=== PATIENT | female | born 1940 | race Caucasian/White ===

== ENCOUNTER 2017-02-11 16:28 | Emergency (ER) | payer OTHER ==
[~2017-02-11] VITALS: Ht 162.6 cm; Wt 58.1 kg
[~2017-02-11 16:28] MED LIST: ACET-1256 PO; ASPEC81 PO; ATOR10TA88 PO; DICY10CA55 PO; MULT-931 PO
[2017-02-11] MEDS ORDERED: SODIUM CHLORIDE 0.9% 1000ML 1,000 ML IV STA (16:33)
[2017-02-11] MEDS ORDERED: MoRPHine SULFATE 2 MG/ML CARP IV STA (16:33)
[2017-02-11] MEDS ORDERED: ONDANSETRON INJ 2 MG/ML 2 ML VIAL IV STA (16:33)
[2017-02-11 16:34] VITALS: Ht 162.6 cm; Wt 58.1 kg
[2017-02-11 16:55] LABS: BASO % 0.6 %; BASO ABS # 0.05 K/uL (0-0.2); COMPLETE YES; EOS % 1.3 %; HEMATOCRIT 41.7 % (37-47); IG% 0.1 %; LYMPH % 33.5 %; LYMPH ABS # 2.95 K/uL (1.2-3.4); MEAN CELL VOLUME 90.8 fL (80-100); MEAN CORPUSCULAR HEMOGLOBIN 29.4 pg (25-34); MEAN CORPUSCULAR HGB CONC 32.4 g/dl (32-36); MEAN PLATELET VOLUME 10.8 fL (7.4-10.4); NEUT % 53.5 %; PLATELET COUNT 203 K/uL (130-400); RED BLOOD COUNT 4.59 M/uL (4.2-5.4)
[2017-02-11 17:04] LABS: PARTIAL THROMBOPLASTIN RATIO 0.9; PROTHROMBIN TIME (PATIENT) 11.2 SECONDS (9.0-12.0)
[2017-02-11] MEDS ORDERED: MoRPHine SULFATE 2 MG/ML CARP IV PRN (17:30)
[2017-02-11 17:37] LABS: ALKALINE PHOSPHATASE 66 U/L (45-117); ALT/SGPT 31 U/L (12-78); AST/SGOT 35 U/L (15-37); BLOOD UREA NITROGEN 14 mg/dl (7-18); BUN/CREATININE RATIO 19.5 (10-20); CALCIUM 8.6 mg/dl (8.5-10.1); CARBON DIOXIDE 28 mmol/L (21-32); CHLORIDE 103 mmol/L (98-107); CREATININE 0.74 mg/dl (0.60-1.20); GLUCOSE 102 mg/dl (70-99); POTASSIUM 3.9 mmol/L (3.5-5.1); SODIUM 137 mmol/L (136-145)
--- NOTE | 2017-02-11 17:42 | DIAGNOSTIC IMAGING REPORT ---
LEFT HIP UNILATERAL 1 VIEW CLINICAL HISTORY: LEFT HIP DEFORMITY pain COMPARISON: None. DISCUSSION: Dislocation of the patient's left hip total arthroplasty. Slight superior migration of the left femoral prosthetic in relation to the acetabular prosthetic. No evidence for fracture. There is no evidence for soft tissue swelling. IMPRESSION: Dislocation left hip arthroplasty The above report was generated using voice recognition software. It may contain grammatical, syntax or spelling errors. Electronically signed by: Modesto Estevez M.D. 02/11/2017 5:41 PM Dictated Date/Time: 02/11/2017 5:40 PM
--- NOTE | 2017-02-11 18:31 | EMERGENCY ROOM VISIT NOTE ---
History Report prepared by Dorian: Maia Muller Under the Supervision of: Dr. Teresa Plasencia M.D. First contact with patient: 16:33 Chief Complaint: FALL Stated Complaint: FALL. L HIP AND LEG PAIN History of Present Illness The patient is a 77 year old female who presents to the Emergency Room by EMS with complaints of persistent left hip pain after falling just prior to arrival. The patient states that a dog was coming at her just before she fell. She also notes that she was yelling for help before pedestrians came and called EMS. She states she has both hips replaced and denies ever dislocating her hips before. The patient denies hurting anything else from the fall and denies any abdominal pain or nausea. The patient denies hitting her head and loosing consciousness. She also notes that she is on any blood thinners. Source of History: patient Onset: just prior to arrival Position: other (hip) Timing: other (persistent) Associated Symptoms: No LOC, No nausea, No abdominal pain Note: Pt denies hitting head. Review of Systems See HPI for pertinent positives & negatives. A total of 10 systems reviewed and were otherwise negative. Past Medical & Surgical Surgical Problems: (1) Status post hip replacement Family History Patient reports no known family medical history. No pertinent family history stated. Social History Smoking Status: Never Smoker Drug Use: none Marital Status: Housing Status: lives alone Occupation Status: employed Current/Historical Medications No Active Prescriptions or Reported Meds Allergies Coded Allergies: Penicillins (Verified Allergy, Unknown, 08/04/09) Physical Exam Vital Signs Date Time Temp Pulse Resp B/P (MAP) Pulse Ox O2 Delivery O2 Flow Rate FiO2 02/11/17 21:08 78 16 135/78 98 02/11/17 20:17 74 18 146/81 98 Room Air 02/11/17 20:05 72 10 137/78 96 02/11/17 20:03 133/74 02/11/17 20:02 74 16 137/78 95 Room Air 02/11/17 20:01 131/ 02/11/17 19:55 81 11 126/70 100 02/11/17 19:52 125/79 02/11/17 19:50 146/83 02/11/17 19:50 79 4 125/79 98 Nasal Cannula 2.0 02/11/17 19:48 80 16 168/91 99 Nasal Cannula 2.0 02/11/17 19:45 36.8 80 16 168/91 99 Nasal Cannula 2.0 02/11/17 19:45 79 14 98 02/11/17 18:32 76 16 175/80 99 Room Air 02/11/17 18:32 69 02/11/17 16:34 36.6 74 18 139/89 99 Room Air Physical Exam Vital signs reviewed. General: Well-appearing female. HEENT: No scleral icterus, PERRLA, neck supple. Atraumatic. Cardiovascular: Regular rate and rhythm, no extra sounds. Pulmonary: Clear to auscultation bilaterally, normal work of breathing. Abdomen: Soft, nontender, nondistended, positive bowel sounds. Musculoskeletal: Atraumatic, no significant deformity. Cervical, thoracic and lumbar spine are palpated, nontender, no step-off or deformity appreciated. Deformity of left hip with inversion of leg Neurologic: Patient awake alert and oriented x 3, full strength in all 4 extremities. NVI distally to left foot. Skin: Warm, dry, no rash. No significant abrasions/laceration. Medical Decision & Procedures ER Provider Diagnostic Interpretation: LEFT HIP UNILATERAL 1 VIEW DISCUSSION: Dislocation of the patient's left hip total arthroplasty. Slight superior migration of the left femoral prosthetic in relation to the acetabular prosthetic. No evidence for fracture. There is no evidence for soft tissue swelling. IMPRESSION: Dislocation left hip arthroplasty The above report was generated using voice recognition software. It may contain grammatical, syntax or spelling errors. Electronically signed by: Modesto Estevez M.D. LEFT HIP UNILATERAL 2 VIEWS CLINICAL HISTORY: L hip dislocation COMPARISON: Earlier study same date DISCUSSION: Anatomic alignment status post closed reduction. Good contact between prosthetic and underlying bone. There is no evidence for soft tissue swelling. IMPRESSION: Anatomic alignment status post closed reduction The above report was generated using voice recognition software. It may contain grammatical, syntax or spelling errors. Electronically signed by: Modesto Estevez M.D. 02/11/2017 8:13 PM Laboratory Results 02/11/17 16:35 Red Blood Count 4.59, Mean Corpuscular Volume 90.8, Mean Corpuscular Hemoglobin 29.4, Mean Corpuscular Hemoglobin Concent 32.4, Mean Platelet Volume 10.8, Neutrophils (%) (Auto) 53.5, Lymphocytes (%) (Auto) 33.5, Monocytes (%) (Auto) 11.0, Eosinophils (%) (Auto) 1.3, Basophils (%) (Auto) 0.6, Neutrophils # (Auto ) 4.71, Lymphocytes # (Auto) 2.95, Monocytes # (Auto) 0.97, Eosinophils # (Auto ) 0.11, Basophils # (Auto) 0.05 02/11/17 16:35 Test 02/11/17 16:35 White Blood Count 8.80 K/uL (4.8-10.8) Red Blood Count 4.59 M/uL (4.2-5.4) Hemoglobin 13.5 g/dL (12.0-16.0) Hematocrit 41.7 % (37-47) Mean Corpuscular Volume 90.8 fL (80-100) Mean Corpuscular Hemoglobin 29.4 pg (25-34) Mean Corpuscular Hemoglobin Concent 32.4 g/dl (32-36) Platelet Count 203 K/uL (130-400) Mean Platelet Volume 10.8 fL (7.4-10.4) Neutrophils (%) (Auto) 53.5 % Lymphocytes (%) (Auto) 33.5 % Monocytes (%) (Auto) 11.0 % Eosinophils (%) (Auto) 1.3 % Basophils (%) (Auto) 0.6 % Neutrophils # (Auto) 4.71 K/uL (1.4-6.5) Lymphocytes # (Auto) 2.95 K/uL (1.2-3.4) Monocytes # (Auto) 0.97 K/uL (0.11-0.59) Eosinophils # (Auto) 0.11 K/uL (0-0.5) Basophils # (Auto) 0.05 K/uL (0-0.2) RDW Standard Deviation 45.4 fL (36.4-46.3) RDW Coefficient of Variation 13.7 % (11.5-14.5) Immature Granulocyte % (Auto) 0.1 % Immature Granulocyte # (Auto) 0.01 K/uL (0.00-0.02) Prothrombin Time 11.2 SECONDS (9.0-12.0) Prothromb Time International Ratio 1.0 (0.9-1.1) Activated Partial Thromboplast Time 24.0 SECONDS (21.0-31.0) Partial Thromboplastin Ratio 0.9 Anion Gap 6.0 mmol/L (3-11) Est Creatinine Clear Calc Drug Dose 56.8 ml/min Estimated GFR () 91.9 Estimated GFR (Non- 79.3 BUN/Creatinine Ratio 19.5 (10-20) Calcium Level 8.6 mg/dl (8.5-10.1) Total Bilirubin 0.3 mg/dl (0.2-1) Direct Bilirubin mg/dl (0-0.2) Aspartate Amino Transf (AST/SGOT) 35 U/L (15-37) Alanine Aminotransferase (ALT/SGPT) 31 U/L (12-78) Alkaline Phosphatase 66 U/L (45-117) Total Protein 7.0 gm/dl (6.4-8.2) Albumin 3.7 gm/dl (3.4-5.0) Chemistry Specimen Hemolysis Laboratory results per my review. Medications Administered Medications (Trade) Dose Ordered Sig/Juan Route Start Time Stop Time Status Last Admin Dose Admin Sodium Chloride 1,000 ml @ 125 mls/hr Q8H STAT IV 02/11/17 16:33 02/11/17 22:17 DC 02/11/17 16:46 125 MLS/HR Morphine Sulfate (MoRPHine SULFATE INJ) 2 mg NOW STAT IV 02/11/17 16:33 02/11/17 16:37 DC 02/11/17 16:45 2 MG Ondansetron HCl (Zofran Inj) 4 mg NOW STAT IV 02/11/17 16:33 02/11/17 16:37 DC 02/11/17 16:45 4 MG Morphine Sulfate (MoRPHine SULFATE INJ) 2 mg Q1HWA PRN IV 02/11/17 17:30 02/11/17 22:17 DC 02/11/17 17:31 2 MG Procedure Procedural Sedation Indication Hip reduction. Total time: 16 minutes. Written consent was obtained after the risks and benefits were explained to the the patient, including, but not limited to aspiration, allergic reaction, breathing difficulties, cardiac complications, vomiting, pain, event recall, bleeding, and/or infection. Pre-sedation examination and paperwork completed. The patient was on 100% oxygen via NRB prior to the procedure. Continuous end tidal CO2 monitoring, pulse oximetry, and cardiac monitoring were utilized. Suction, airway equipment, medications, respiratory equipment, and appropriate personnel were prepared prior to the initiation of the procedure. A time out was taken. Sedation was achieved utilizing a total of 75 mg of propofol. After I observed the patient had reached the appropriate level of sedation the main procedure was performed without complication. Sedation was discontinued and the monitoring continued. The patient recovered quickly from the effects of the medication without complication or adverse event. ECG Indication: other (s/p fall and hip pain) Rate (beats per minute): 72 Rhythm: normal sinus Findings: other (atrial enlargement) ED Course 163: Past medical records reviewed. The patient was evaluated in room B9. A complete history and physical examination was performed. 1632: Zofran Inj 4 mg IV, Morphine Sulfate Inj 2 mg Iv, Sodium Chloride 1000 ml @ 999 mls/hr IV 1729: Morphine Sulfate 2 mg IV 1909: I reviewed the patient's case with Dr. Mckeon from [facility]. He will be coming to reduce the patient's hip. 1917: Propofol 100 mg IV. 1933: I updated the patient about Dr. Mckeon coming to reduce her hip. The patient has been NPO for 6 hours with light snack 3 hours ago 1948: I put patient under conscious sedation 1950: Dr. Mckeon reduced the patient's left hip. 2039: Upon reevaluation, the patient appeared to have improvement of her symptoms. I discussed findings with the patient. She verbalized agreement of the treatment plan. The patient was discharged home. Medical Decision Differential diagnosis: Etiologies such as fracture, dislocation, neurovascular compromise, compartment syndrome, soft tissue injury, as well as others were entertained. This pt was evaluated and appeared to be in significant discomfort. IV access was obtained and lab work was drawn. Pt was placed on the library monitor. IV morphine was administered for pain. XR of the L hip was performed and confirms dislocation of IMANI. Pt was NPO after light snack for 3 hours at time of evaluation. She was kept NPO for 3 more hours during evaluation. Dr Mckeon was contacted and evaluated the pt in the ED for reduction. Pt was consented and the procedure was performed without difficulty. Pt recovered easily. She was d/c with hip precautions and will f/u with Dr Jones, her orthopaedic surgeon, later this week for reevaluation. She was advised to return to the ED for worsening of symptoms or any medical concerns. Medication Reconcilliation Current Medication List: was personally reviewed by me Blood Pressure Screening Patient's blood pressure: Normal blood pressure Blood pressure disposition: Did not require urgent referral Impression Primary Impression: Hip dislocation, left Additional Impression: History of total hip arthroplasty Scribe Attestation The scribe's documentation has been prepared under my direction and personally reviewed by me in its entirety. I confirm that the note above accurately reflects all work, treatment, procedures, and medical decision making performed by me. Departure Information Dispostion Home / Self-Care Prescriptions No Active Prescriptions or Reported Meds Referrals Dillon Skaggs M.D. (PCP) Forms HOME CARE DOCUMENTATION FORM, IMPORTANT VISIT INFORMATION Patient Instructions My [facility] Additional Instructions Diagnosis: Left hip dislocation Please maintain strict hip precautions as discussed with Dr. Mckeon. See hip precaution handout. Follow-up with Dr. Jones this week for reevaluation. Tylenol 650 mg every 6 hours as needed for pain Return to the emergency department for worsening of symptoms or any medical concerns. Problem Qualifiers Primary Impression: Hip dislocation, left Encounter type: initial encounter Qualified Codes: S73.005A - Unspecified dislocation of left hip, initial encounter
[2017-02-11] MEDS ORDERED: PROPOFOL IV EMULSION 10 MG/ML 20 ML VIAL IV STA (19:18)
--- NOTE | 2017-02-11 19:42 | EMERGENCY ROOM VISIT NOTE ---
Pre-Mod Sedation Assessment General Date of Moderate Sedation: Feb 11, 2017. Vital Signs: Vital Signs Past 12 Hours Date Time Temp Pulse Resp B/P (MAP) Pulse Ox O2 Delivery O2 Flow Rate FiO2 02/11/17 18:32 76 16 175/80 99 Room Air 02/11/17 18:32 69 02/11/17 16:34 36.6 74 18 139/89 99 Room Air Review Cardiovascular: regular rate, rhythm Abdomen: normal bowel sounds, non tender, soft Lungs: chest non-tender, normal breath sounds Airway Class: I Pre-Sedation Airway Assessment Oral Cavity: WNL Able to Visualize Vocal Cords: Yes Short Thick Neck: No Hx of Sleep Apnea: No Smoking Status: Never Smoker Mallampati Classification: Class I (Sft palate,uvula,fauces,pillar) ASA Classification: Class I Procedure Planning Contraindications-for Mod Sed: None Yes Notes The planned sedation has been discussed with the patient and consent obtained. I have identified the patient, determined the appropriateness of sedation and have assessed the patient immediately prior to the procedure. All medicine(s) and interventions are by my order.
[2017-02-11 19:45] VITALS: BP 168/91; PULSE 80; TEMP 36.8; O2SAT 99
--- NOTE | 2017-02-11 19:47 | EMERGENCY ROOM VISIT NOTE ---
Post-Moderate Sedation Plan General Date of Moderate Sedation Feb 11, 2017. Vital Signs: Vital Signs Past 12 Hours Date Time Temp Pulse Resp B/P (MAP) Pulse Ox O2 Delivery O2 Flow Rate FiO2 02/11/17 18:32 76 16 175/80 99 Room Air 02/11/17 18:32 69 02/11/17 16:34 36.6 74 18 139/89 99 Room Air Review - Discharge Plan Post Moderate Sedation Plan: On clinical assessment, the patient appears to have tolerated the conscious sedation without complications. Patient is recovering as anticipated. Patient will continue to be monitored by nursing and may be discharged when conscious sedation discharge criteria are met.
[2017-02-11 19:48] VITALS: BP 168/91; PULSE 80; O2SAT 99
[2017-02-11 19:50] VITALS: BP 125/79; PULSE 79; O2SAT 98
[2017-02-11 20:02] VITALS: BP 137/78; PULSE 74; O2SAT 95
--- NOTE | 2017-02-11 20:14 | DIAGNOSTIC IMAGING REPORT ---
LEFT HIP UNILATERAL 2 VIEWS CLINICAL HISTORY: L hip dislocation COMPARISON: Earlier study same date DISCUSSION: Anatomic alignment status post closed reduction. Good contact between prosthetic and underlying bone. There is no evidence for soft tissue swelling. IMPRESSION: Anatomic alignment status post closed reduction. The above report was generated using voice recognition software. It may contain grammatical, syntax or spelling errors. Electronically signed by: Modesto Estevez M.D. 02/11/2017 8:13 PM Dictated Date/Time: 02/11/2017 8:12 PM
[2017-02-11 20:17] VITALS: BP 146/81; PULSE 74; O2SAT 98
[2017-02-11 21:08] VITALS: BP 135/78; PULSE 78; O2SAT 98
--- NOTE | 2017-02-12 00:31 | ORTHOPEDIC CONSULTATION ---
DATE OF CONSULTATION: 02/11/2017 HISTORY OF PRESENT ILLNESS: A 77-year-old female with history of a left total hip replacement by Dr. Jones in 2004. She never had any complications or problems with it. She is a very active person. She was walking her dog and there was an incident and she ended up twisting and her hip dislocated. PAST MEDICAL HISTORY: She has been healthy. She has had a bladder tack type surgery with hysterectomy and her hip replacement. Other than that, no health issues. MEDICATIONS: She is on no medication. REVIEW OF SYSTEMS: Noncontributory. PHYSICAL EXAMINATION: Demonstrates her left hip is flexed and internally rotated. Distal neurological exam is intact. Hip is clearly dislocated posteriorly. She has benign incision. There are no signs of infection. Radiographs demonstrate a posterior dislocation of the left hip, no obvious fracture. ASSESSMENT: Acute posttraumatic posterior hip dislocation, status post total hip arthroplasty in 2004. PLAN: Closed reduction. The Emergency Room personnel provided the sedation with Dr. Plasencia providing the sedation. Her left hip was reduced by standing above the patient, flexing her knee and hip to 90 degrees, then putting a longitudinal traction on the hip and then gradually externally rotating the hip until it reduced uneventfully. Then I checked her leg length which was appropriate, checked her stability and into flexion. Her hip was stable to 100 degrees of flexion and I did not stress it further, not wanting to re-dislocate the hip. With gentle rotation, hip was stable. Post-reduction x-rays demonstrate a relocated total hip with no fracture. Post-procedure plan is to discharge the patient home. Recommended elevated toilet seat to prevent dislocation. Strict hip precautions. Instructions were provided to the patient and the family. She will follow up with Dr. Jones in a week.
== END 2017-02-11 21:09 | disposition home or self-care (01) ==
LOC: EDBD 16:28 → C.EDB 16:29 → C.ED 21:09
DX: T84.021A Dislocation of internal left hip prosthesis, initial encounter (principal); W19.XXXA Unspecified fall, initial encounter; Y92.89 Other specified places as the place of occurrence of the external cause; Y93.K1 Activity, walking an animal

== ENCOUNTER → 2017-03-14 | Outpatient (CLI) | payer OTHER ==
--- NOTE | 2017-03-14 10:48 | DIAGNOSTIC IMAGING REPORT ---
CHEST 2 VIEWS ROUTINE HISTORY: Cough. COMPARISON: Chest 04/06/2016. FINDINGS: Mild discharge scoliosis of the thoracic spine. The lungs are hyperexpanded with apical predominant emphysematous changes. The lungs are clear. No pleural effusions. No pneumothorax. The heart is normal in size. IMPRESSION: No significant change compared to the prior study. No acute process. Mild emphysema. Electronically signed by: Jose Vargas M.D. 03/14/2017 10:46 AM Dictated Date/Time: 03/14/2017 10:44 AM
[2017-03-16 09:13] LABS: INFLUENZA A RAPID CULTURE NONE DETECTED (NONE DETECTED); INFLUENZA B RAPID CULTURE NONE DETECTED (NONE DETECTED); INFLUENZA VIRUS CULT SOURCE RESPIRATORY-NASOPHAR
== END | disposition home or self-care (01) ==
LOC: C.RAD1850 10:22
PROVIDERS: ATTEND Physician Assistant
DX: R05 Cough (principal)